=== PATIENT | female | born 1930 | race Caucasian/White ===

== ENCOUNTER 2016-11-28 18:24 | Inpatient (IN) | payer MEDICARE, MEDICAID ==
[~2016-11-28] VITALS: Ht 154.9 cm; Wt 112.5 kg
[~2016-11-28 18:24] MED LIST: ACET-73 PO; ACET325T53 PO; AMIO200T7 PO; BISA10SU12 RC; BLOO-360 IN; CRAN450T3 PO; DOCU250C75 PO; FLUT1DIS28 IH; HYDR-3651 PO; LEVO88TA5 PO; MAGN400O4 PO; MONT10TA22 PO; NA P133E RC; PIOG15TA3 PO; RIVA10TA PO; SIMV20TA2 PO
[2016-11-28] MEDS ORDERED: [UNRECOGNIZED DRUG - CODE] PO (19:36)
[2016-11-28] MEDS ORDERED: BISA10SU12 RC (19:36)
[2016-11-28] MEDS ORDERED: SENN8.6T6 PO (19:36)
[2016-11-28] MEDS ORDERED: LORA0.5T PO (19:36)
[2016-11-28] MEDS ORDERED: QUET100T PO (19:36)
[2016-11-28] MEDS ORDERED: FLUT1BLS IH (19:36)
[2016-11-28] MEDS ORDERED: GABA-534 PO (19:36)
[2016-11-28] MEDS ORDERED: DIVA125C PO (19:36)
[2016-11-28 19:37] LABS: BASOPHILS % (AUTO) 0.5 % (0.0-2.0); EOSINOPHILS # (AUTO) 0.1 K/uL (0.0-0.7); EOSINOPHILS % (AUTO) 1.9 % (0.0-7.0); HEMATOCRIT 35.5 % (37.0-47.0); LYMPHOCYTES # (AUTO) 2.6 K/uL (0.8-4.8); LYMPHOCYTES % (AUTO) 36.6 % (20.5-51.5); MEAN CORPUSCULAR HEMOGLOBIN 30.6 uug (27.0-31.0); MEAN CORPUSCULAR HGB CONC 34 g/dL (32.0-37.0); MEAN CORPUSCULAR VOLUME 90.2 fL (81.0-99.0); MONOCYTES # (AUTO) 0.6 K/uL (0.1-1.30); MONOCYTES % (AUTO) 8.1 % (0.0-11.0); NEUTROPHILS # (AUTO) 3.7 K/uL (1.8-8.9); NEUTROPHILS % (AUTO) 52.9 % (38.5-71.5); PLATELET COUNT (AUTO) 149 K/uL (150-450); RED BLOOD CELL COUNT(AUTO) 3.93 MIL/uL (4.20-5.40); RED CELL DISTRIBUTION WIDTH 13.8 % (11.5-14.5)
[2016-11-28 19:39] LABS: CALCIUM 8.7 mg/dL (8.5-10.1); CARBON DIOXIDE 29 mmol/L (21-32); CHLORIDE 103 mmol/L (98-107); CREATININE 0.9 mg/dL (0.6-1.3); GLUCOSE 141 mg/dL (74-106); POTASSIUM 4.4 mmol/L (3.5-5.1); SODIUM SERUM 138 mmol/L (136-145); UREA NITROGEN, BLOOD 19 mg/dL (7-18)
[2016-11-28 19:45] LABS: ALANINE AMINOTRANSFERASE 9 U/L (14-59); ALBUMIN 3.1 g/dL (3.4-5.0); ALKALINE PHOSPHATASE 62 U/L (50-136); ASPARTATE AMINOTRANSFERASE 13 U/L (15-37); BILIRUBIN,DIRECT 0.1 mg/dL (0.0-0.2); BILIRUBIN,TOTAL 0.3 mg/dL (0.2-1.0); TOTAL PROTEIN, SERUM 7.3 g/dL (6.4-8.2)
[2016-11-28 20:09] LABS: ACETAMINOPHEN < 2.0 ug/mL (10-30)
[2016-11-28 20:40] VITALS: BP 168/72
[2016-11-28 20:42] LABS: ETHANOL < 3 MG/DL (0-0)
[2016-11-28] MEDS ORDERED: MAG HYDROX/AL HYDROX/SIMETH 30 ML LIQUID UDC PO PRN (20:45)
[2016-11-28] MEDS ORDERED: MAGNESIUM HYDROXIDE 30 ML LIQUID UDC PO PRN (20:45)
[2016-11-28] MEDS ORDERED: ACETAMINOPHEN 325 MG TABLET PO PRN (20:45)
[2016-11-28] MEDS ORDERED: TEMAZEPAM 7.5 MG CAPSULE ONE (22:13)
[2016-11-29 07:54] VITALS: BP 128/50
[2016-11-29] MEDS: LORAZEPAM 0.5 MG TABLET PO PRN (11:38)
[2016-11-29 15:29] VITALS: BP 164/56
[2016-11-29] MEDS ORDERED: OLANZAPINE 10 MG VIAL IM ONE (16:15)
[2016-11-29 20:08] VITALS: BP 156/54
[2016-11-29] MEDS: QUETIAPINE FUMARATE 100 MG TABLET PO SCH (20:10)
[2016-11-29] MEDS: TEMAZEPAM 7.5 MG CAPSULE PO PRN (21:54)
[2016-11-30] MEDS: LORAZEPAM 0.5 MG TABLET PO PRN ×2 (01:09→08:04)
[2016-11-30 06:47] LABS: BASOPHILS % (AUTO) 0.5 % (0.0-2.0); EOSINOPHILS # (AUTO) 0.2 K/uL (0.0-0.7); EOSINOPHILS % (AUTO) 2.5 % (0.0-7.0); HEMATOCRIT 35.4 % (37.0-47.0); HEMOGLOBIN 12.1 g/dL (12.0-16.0); LYMPHOCYTES # (AUTO) 2.3 K/uL (0.8-4.8); MEAN CORPUSCULAR HEMOGLOBIN 30.8 uug (27.0-31.0); MEAN CORPUSCULAR HGB CONC 34 g/dL (32.0-37.0); MEAN CORPUSCULAR VOLUME 90.3 fL (81.0-99.0); MONOCYTES # (AUTO) 0.7 K/uL (0.1-1.30); MONOCYTES % (AUTO) 11.2 % (0.0-11.0); NEUTROPHILS # (AUTO) 2.9 K/uL (1.8-8.9); NEUTROPHILS % (AUTO) 47.8 % (38.5-71.5); PLATELET COUNT (AUTO) 137 K/uL (150-450); RED BLOOD CELL COUNT(AUTO) 3.92 MIL/uL (4.20-5.40); RED CELL DISTRIBUTION WIDTH 13.8 % (11.5-14.5); WHITE BLOOD COUNT (AUTO) 6.1 K/uL (4.0-11.2)
[2016-11-30 07:30] VITALS: BP 143/59
[2016-11-30 07:51] LABS: BILIRUBIN,TOTAL 0.3 mg/dL (0.2-1.0); CALCIUM 8.8 mg/dL (8.5-10.1); CREATININE 0.9 mg/dL (0.6-1.3); MAGNESIUM 2.1 mg/dL (1.8-2.4); PHOSPHOROUS 4.1 mg/dL (2.5-4.9); POTASSIUM 3.9 mmol/L (3.5-5.1)
[2016-11-30] MEDS: DIVALPROEX 250 MG TABLET.DR PO SCH ×2 (08:04→12:46)
[2016-11-30] MEDS ORDERED: HYDROCODONE/APAP 5-325MG TABLET PO PRN (08:45)
[2016-11-30] MEDS: MONTELUKAST SODIUM 10 MG TABLET PO SCH ×2 (08:45→21:18)
[2016-11-30] MEDS ORDERED: BISACODYL 10 MG SUPP.RECT RC PRN (08:45)
[2016-11-30] MEDS ORDERED: FLEET ENEMA 133 ML BOTTLE RC PRN (08:45)
[2016-11-30] MEDS: GABAPENTIN 300 MG CAPSULE PO SCH ×3 (09:00→16:52)
[2016-11-30] MEDS: AMIODARONE HCL 200 MG TABLET PO SCH (09:00)
[2016-11-30] MEDS: CALCIUM CARB/VITAMIN D 600-400 MG TABLET PO SCH (09:00)
[2016-11-30] MEDS: DOCUSATE SODIUM 250 MG CAPSULE PO SCH (09:00)
[2016-11-30] MEDS: PIOGLITAZONE HCL 15 MG TABLET PO SCH (09:00)
[2016-11-30] MEDS ORDERED: LEVOTHYROXINE SODIUM 88 MCG TABLET PO SCH (09:05)
[2016-11-30 09:42] LABS: THYROID STIMULATING HORMONE 11.612 mIU/mL (0.358-3.740)
[2016-11-30 16:00] VITALS: BP 145/65
[2016-11-30 20:00] VITALS: BP 158/70
[2016-11-30] MEDS: SENNOSIDES 1 TABLET PO SCH (21:18)
[2016-11-30] MEDS: QUETIAPINE FUMARATE 100 MG TABLET PO SCH (21:18)
[2016-11-30] MEDS: SIMVASTATIN 20 MG TABLET PO SCH (21:18)
[2016-11-30] MEDS: RIVAROXABAN 10 MG TABLET PO SCH (21:18)
[2016-12-01] MEDS ORDERED: LEVOTHYROXINE SODIUM 88 MCG TABLET PO SCH (07:00)
[2016-12-01 07:30] VITALS: BP 168/63
[2016-12-01] MEDS: AMIODARONE HCL 200 MG TABLET PO SCH (09:00)
[2016-12-01] MEDS: CALCIUM CARB/VITAMIN D 600-400 MG TABLET PO SCH (09:30)
[2016-12-01] MEDS: DOCUSATE SODIUM 250 MG CAPSULE PO SCH (09:30)
[2016-12-01] MEDS: DIVALPROEX 250 MG TABLET.DR PO SCH ×3 (09:30→13:21)
[2016-12-01] MEDS: GABAPENTIN 300 MG CAPSULE PO SCH ×4 (09:30→17:55)
[2016-12-01] MEDS: LEVOTHYROXINE SODIUM 100 MCG TABLET PO SCH (09:31)
[2016-12-01] MEDS: PIOGLITAZONE HCL 15 MG TABLET PO SCH (09:34)
[2016-12-01 16:00] VITALS: BP 147/66
[2016-12-01 20:00] VITALS: BP 127/62
[2016-12-01] MEDS: QUETIAPINE FUMARATE 100 MG TABLET PO SCH (20:44)
[2016-12-01] MEDS: SENNOSIDES 1 TABLET PO SCH (20:44)
[2016-12-01] MEDS: MONTELUKAST SODIUM 10 MG TABLET PO SCH (20:44)
[2016-12-01] MEDS: SIMVASTATIN 20 MG TABLET PO SCH (20:44)
[2016-12-01] MEDS: RIVAROXABAN 10 MG TABLET PO SCH (20:46)
[2016-12-01] MEDS: TEMAZEPAM 7.5 MG CAPSULE PO PRN (20:53)
[2016-12-02] MEDS: LEVOTHYROXINE SODIUM 100 MCG TABLET PO SCH ×2 (06:43→08:52)
[2016-12-02 07:30] VITALS: BP 147/64
[2016-12-02] MEDS: AMIODARONE HCL 200 MG TABLET PO SCH (08:49)
[2016-12-02] MEDS: CALCIUM CARB/VITAMIN D 600-400 MG TABLET PO SCH (08:51)
[2016-12-02] MEDS: DOCUSATE SODIUM 250 MG CAPSULE PO SCH (08:52)
[2016-12-02] MEDS: DIVALPROEX 250 MG TABLET.DR PO SCH ×3 (08:52→18:06)
[2016-12-02] MEDS: PIOGLITAZONE HCL 15 MG TABLET PO SCH (08:52)
[2016-12-02] MEDS: GABAPENTIN 300 MG CAPSULE PO SCH ×3 (08:52→18:01)
[2016-12-02 15:33] VITALS: BP 132/59
[2016-12-02 20:07] VITALS: BP 141/60
[2016-12-02] MEDS: SENNOSIDES 1 TABLET PO SCH (20:44)
[2016-12-02] MEDS: QUETIAPINE FUMARATE 100 MG TABLET PO SCH (20:44)
[2016-12-02] MEDS: RIVAROXABAN 10 MG TABLET PO SCH (20:45)
[2016-12-02] MEDS: SIMVASTATIN 20 MG TABLET PO SCH (20:45)
[2016-12-02] MEDS: MONTELUKAST SODIUM 10 MG TABLET PO SCH (20:45)
[2016-12-02] MEDS: TEMAZEPAM 7.5 MG CAPSULE PO PRN (22:56)
[2016-12-03 07:30] VITALS: BP 123/75
[2016-12-03] MEDS: DOCUSATE SODIUM 250 MG CAPSULE PO SCH (08:09)
[2016-12-03] MEDS: GABAPENTIN 300 MG CAPSULE PO SCH ×3 (08:09→16:18)
[2016-12-03] MEDS: PIOGLITAZONE HCL 15 MG TABLET PO SCH (08:09)
[2016-12-03] MEDS: DIVALPROEX 250 MG TABLET.DR PO SCH ×3 (08:09→16:18)
[2016-12-03] MEDS: AMIODARONE HCL 200 MG TABLET PO SCH (08:09)
[2016-12-03] MEDS: CALCIUM CARB/VITAMIN D 600-400 MG TABLET PO SCH (08:09)
[2016-12-03 16:00] VITALS: BP 131/59
[2016-12-03 20:00] VITALS: BP 122/59
[2016-12-03] MEDS: SIMVASTATIN 20 MG TABLET PO SCH (20:40)
[2016-12-03] MEDS: MONTELUKAST SODIUM 10 MG TABLET PO SCH (20:40)
[2016-12-03] MEDS: RIVAROXABAN 10 MG TABLET PO SCH (20:41)
[2016-12-03] MEDS: SENNOSIDES 1 TABLET PO SCH (20:41)
[2016-12-03] MEDS: QUETIAPINE FUMARATE 100 MG TABLET PO SCH (20:41)
[2016-12-04] MEDS: TEMAZEPAM 7.5 MG CAPSULE PO PRN (00:18)
[2016-12-04 06:26] LABS: HEMATOCRIT 38.5 % (37.0-47.0); HEMOGLOBIN 12.5 g/dL (12.0-16.0); MEAN CORPUSCULAR HEMOGLOBIN 29.7 uug (27.0-31.0); MEAN CORPUSCULAR HGB CONC 32 g/dL (32.0-37.0); MEAN CORPUSCULAR VOLUME 91.5 fL (81.0-99.0); PLATELET COUNT (AUTO) 161 K/uL (150-450); RED BLOOD CELL COUNT(AUTO) 4.21 MIL/uL (4.20-5.40); RED CELL DISTRIBUTION WIDTH 13.4 % (11.5-14.5); WHITE BLOOD COUNT (AUTO) 7.1 K/uL (4.0-11.2)
[2016-12-04 06:42] LABS: BILIRUBIN,TOTAL 0.3 mg/dL (0.2-1.0); CALCIUM 8.7 mg/dL (8.5-10.1); CREATININE 1.1 mg/dL (0.6-1.3); MAGNESIUM 2.1 mg/dL (1.8-2.4); POTASSIUM 4.1 mmol/L (3.5-5.1)
[2016-12-04] MEDS: LEVOTHYROXINE SODIUM 100 MCG TABLET PO SCH (06:48)
[2016-12-04] MEDS ORDERED: Z GUARD REMEDY PASTE 57 GM TUBE TOP PRN (07:15)
[2016-12-04 07:30] VITALS: BP 123/68
[2016-12-04] MEDS: GABAPENTIN 300 MG CAPSULE PO SCH ×3 (08:08→16:05)
[2016-12-04] MEDS: DIVALPROEX 250 MG TABLET.DR PO SCH ×3 (08:08→16:05)
[2016-12-04] MEDS: DOCUSATE SODIUM 250 MG CAPSULE PO SCH (08:08)
[2016-12-04] MEDS: CALCIUM CARB/VITAMIN D 600-400 MG TABLET PO SCH (08:08)
[2016-12-04] MEDS: PIOGLITAZONE HCL 15 MG TABLET PO SCH (08:08)
[2016-12-04] MEDS: Z GUARD REMEDY PASTE 57 GM TUBE TOP SCH ×2 (08:10→20:32)
[2016-12-04] MEDS: AMIODARONE HCL 200 MG TABLET PO SCH (08:10)
[2016-12-04 12:10] LABS: BASOPHILS % (AUTO) 0.6 % (0.0-2.0); EOSINOPHILS % (AUTO) 2.2 % (0.0-7.0); LYMPHOCYTES % (AUTO) 45.9 % (20.5-51.5); MONOCYTES % (AUTO) 9.9 % (0.0-11.0); NEUTROPHILS % (AUTO) 41.4 % (38.5-71.5)
[2016-12-04 17:04] VITALS: BP 134/56
[2016-12-04 20:00] VITALS: BP 114/56
[2016-12-04] MEDS: MONTELUKAST SODIUM 10 MG TABLET PO SCH (20:29)
[2016-12-04] MEDS: SENNOSIDES 1 TABLET PO SCH (20:30)
[2016-12-04] MEDS: SIMVASTATIN 20 MG TABLET PO SCH (20:30)
[2016-12-04] MEDS: QUETIAPINE FUMARATE 100 MG TABLET PO SCH (20:30)
[2016-12-04] MEDS: RIVAROXABAN 10 MG TABLET PO SCH (20:31)
[2016-12-04] MEDS: LORAZEPAM 0.5 MG TABLET PO PRN (21:49)
[2016-12-05] MEDS: LEVOTHYROXINE SODIUM 100 MCG TABLET PO SCH (06:43)
[2016-12-05] MEDS: CALCIUM CARB/VITAMIN D 600-400 MG TABLET PO SCH (08:01)
[2016-12-05] MEDS: GABAPENTIN 300 MG CAPSULE PO SCH ×3 (08:01→17:03)
[2016-12-05] MEDS: PIOGLITAZONE HCL 15 MG TABLET PO SCH (08:01)
[2016-12-05] MEDS: DIVALPROEX 250 MG TABLET.DR PO SCH ×3 (08:01→17:03)
[2016-12-05] MEDS: DOCUSATE SODIUM 250 MG CAPSULE PO SCH (08:01)
[2016-12-05] MEDS: AMIODARONE HCL 200 MG TABLET PO SCH (08:02)
[2016-12-05] MEDS: Z GUARD REMEDY PASTE 57 GM TUBE TOP SCH ×2 (08:02→20:01)
[2016-12-05 11:43] VITALS: BP 130/62
[2016-12-05 16:34] VITALS: BP 127/57
[2016-12-05] MEDS: RIVAROXABAN 10 MG TABLET PO SCH (20:00)
[2016-12-05] MEDS: SIMVASTATIN 20 MG TABLET PO SCH (20:00)
[2016-12-05] MEDS: SENNOSIDES 1 TABLET PO SCH (20:01)
[2016-12-05] MEDS: MONTELUKAST SODIUM 10 MG TABLET PO SCH (20:01)
[2016-12-05] MEDS: QUETIAPINE FUMARATE 100 MG TABLET PO SCH (20:01)
[2016-12-05 20:03] VITALS: BP 141/64
[2016-12-06] MEDS: LEVOTHYROXINE SODIUM 100 MCG TABLET PO SCH (06:23)
[2016-12-06 07:30] VITALS: BP 138/50
[2016-12-06] MEDS: DOCUSATE SODIUM 250 MG CAPSULE PO SCH (09:07)
[2016-12-06] MEDS: CALCIUM CARB/VITAMIN D 600-400 MG TABLET PO SCH (09:07)
[2016-12-06] MEDS: GABAPENTIN 300 MG CAPSULE PO SCH ×2 (09:07→13:33)
[2016-12-06] MEDS: DIVALPROEX 250 MG TABLET.DR PO SCH ×2 (09:07→13:33)
[2016-12-06] MEDS: PIOGLITAZONE HCL 15 MG TABLET PO SCH (09:08)
[2016-12-06] MEDS: Z GUARD REMEDY PASTE 57 GM TUBE TOP SCH (09:08)
[2016-12-06] MEDS: AMIODARONE HCL 200 MG TABLET PO SCH (09:13)
[2016-12-06 15:49] VITALS: BP 136/58
== END 2016-12-06 16:00 | DRG 885 ==
LOC: ER 18:24 → GPS 20:18
PROVIDERS: ADMIT Psychiatry & Neurology Psychiatry; ATTEND Internal Medicine
DX: F39 Unspecified mood [affective] disorder (principal); Z68.42 Body mass index [BMI] 45.0-49.9, adult; E44.0 Moderate protein-calorie malnutrition; D68.59 Other primary thrombophilia; F03.90 Unspecified dementia, unspecified severity, without behavioral disturbance, psychotic disturbance, mood disturbance, and anxiety; E78.5 Hyperlipidemia, unspecified; K21.9 Gastro-esophageal reflux disease without esophagitis; E66.01 Morbid (severe) obesity due to excess calories; Z71.3 Dietary counseling and surveillance; E03.9 Hypothyroidism, unspecified; Z74.09 Other reduced mobility; R29.6 Repeated falls; Z96.652 Presence of left artificial knee joint; Z79.02 Long term (current) use of antithrombotics/antiplatelets; I11.9 Hypertensive heart disease without heart failure; Z66 Do not resuscitate; R32 Unspecified urinary incontinence; D69.6 Thrombocytopenia, unspecified; J44.9 Chronic obstructive pulmonary disease, unspecified; Z79.899 Other long term (current) drug therapy; I51.9 Heart disease, unspecified; G89.29 Other chronic pain; M19.90 Unspecified osteoarthritis, unspecified site; I49.9 Cardiac arrhythmia, unspecified; F48.2 Pseudobulbar affect; E11.9 Type 2 diabetes mellitus without complications
CPT/HCPCS: 36415; 71010; 80164; 83735; 84100; 84443; 85025; 93005; 97001; 97116; 97530; A4663; G0480-TC; G6040-TC; J2358; J3490